=== PATIENT | female | born 1990 | race American Indian/Alaskan Native ===

== ENCOUNTER 2016-08-25 14:02 | Outpatient (CLI) | payer MEDICAID ==
[2016-08-25 16:18] VITALS: BP 122/76
[2016-08-25 16:57] LABS: Bilirubin,Urine NEG (Negative); Blood,Urine NEG (Negative); Ketones,Urine NEG (Negative); Leukocyte Esterase,Urine NEG (Negative); Mucus,Urine FEW /HPF; Nitrite,Urine NEG (Negative); Protein,Urine <15 mg/dL mg/dL (Negative)
[2016-08-25] MEDS ORDERED: LACTATED RINGERS 500 ML IV ONE (17:00)
== END 2016-08-25 19:15 | disposition home or self-care (01) ==
LOC: EDSTATUS 15:45 → TRG 15:47
PROVIDERS: ATTEND Obstetrics & Gynecology
DX: O47.03 False labor before 37 completed weeks of gestation, third trimester (principal); Z3A.31 31 weeks gestation of pregnancy
CPT/HCPCS: 59025; 81001; J7120